=== PATIENT | female | born 1975 | race Caucasian/White ===

== ENCOUNTER 2019-06-12 05:56 | Inpatient (IN) | payer OTHER ==
[~2019-06-12] VITALS: Ht 165.1 cm; Wt 53.5 kg
--- NOTE | 2019-06-12 05:58 | NUR ---
PT BIBRA 878 FROM HOME C/O OVERDOSE, PT IS AAOX0, NOTED RESTLESSNESS, NOT IN RESPIRATORY DISTRESS, HOOKED TO MONITOR, KEPT RESTED AND COMFORTABLE, WILL CONTINUE TO MONITOR.
--- NOTE | 2019-06-12 06:20 | NUR ---
URINE SPECIMEN VIA STRAIGHT CATH AND SENT TO LAB.
--- NOTE | 2019-06-12 06:25 | NUR ---
SEEN AND EXAMINED BY DR. LAUREANO.
[2019-06-12] MEDS ORDERED: HALOPERIDOL LACTATE INJ 5 MG/ML VIAL ONE (06:27)
[2019-06-12] MEDS ORDERED: LORAZEPAM INJ 2 MG/ML VIAL ONE (06:28)
[2019-06-12] MEDS ORDERED: LORAZEPAM INJ 2 MG/ML VIAL IM ONE (06:30)
[2019-06-12] MEDS ORDERED: HALOPERIDOL LACTATE INJ 5 MG/ML VIAL IM ONE (06:30)
--- NOTE | 2019-06-12 06:40 | NUR ---
BRENDA TORRES AT BEDSIDE FOR BLOOD DRAW.
--- NOTE | 2019-06-12 06:40 | NUR ---
ON THE PHONE WITH POISON CONTROL.
--- NOTE | 2019-06-12 06:51 | NUR ---
PER POISON CONTROL. OBTAIN BASIC LABS, TOX, AND CHECK THYROID PANEL WELL. IF CALM DOWN, 50G CHARCOL TO DRINK. IF REFUSING, HOLD OFF. CARDIAC MONITORING AND PALCE ON 12 HOUR OBSERVATION DUE TO ADDERAL XR.
[2019-06-12 06:56] LABS: BASOPHILS # (AUTO) 0.1 /CMM (0.0-0.2); BASOPHILS % (AUTO) 0.6 % (0.0-2.0); EOSINOPHILS % (AUTO) 2.5 % (0.0-6.0); HEMATOCRIT 40 % (33-45); HEMOGLOBIN 13.4 g/dL (11.5-14.8); LYMPHOCYTES # (AUTO) 4.3 /CMM (0.8-4.8); LYMPHOCYTES % (AUTO) 39.2 % (20.0-44.0); MEAN CORPUSCULAR HGB CONC 33 g/dl (31.0-36.0); MEAN CORPUSCULAR VOLUME 93 fL (82-100); MONOCYTES # (AUTO) 0.8 /CMM (0.1-1.30); MONOCYTES % (AUTO) 7.6 % (2.0-12.0); NEUTROPHILS # (AUTO) 5.5 /CMM (1.8-8.9); NEUTROPHILS % (AUTO) 50.1 % (43.0-81.0); PLATELET COUNT (AUTO) 394 /CMM (150-450); RED BLOOD CELL COUNT(AUTO) 4.32 MIL/uL (4.0-5.2)
[2019-06-12 07:06] LABS: APPEARANCE,URINE CLEAR (CLEAR); BILIRUBIN,URINE NEGATIVE (NEGATIVE); BLOOD, URINE NEGATIVE Ery/uL (NEGATIVE); COLOR,URINE YELLOW (YELLOW); KETONES,URINE TRACE (NEGATIVE); LEUKOCYTE ESTERASE ,URINE NEGATIVE (NEGATIVE); NITRITE, URINE NEGATIVE (NEGATIVE); PH,URINE 6.5 (5.0-8.0); PROTEIN,URINE NEGATIVE (NEGATIVE); UGLUCOSE NEGATIVE (NEGATIVE); UROBILINOGEN,URINE 0.2 EU/dL (0.2)
[2019-06-12 07:11] LABS: ACETAMINOPHEN 27 ug/ml (10-30); ALANINE AMINOTRANSFERASE 25 U/L (12-78); ALBUMIN 4.3 g/dL (3.4-5.0); ALCOHOL, BLOOD < 3 mg/dL (0-0); ALKALINE PHOSPHATASE 73 U/L (46-116); ASPARTATE AMINOTRANSFERASE 20 U/L (15-37); BILIRUBIN,DIRECT 0.1 mg/dL (0.0-0.2); BILIRUBIN,TOTAL 0.3 mg/dL (0.2-1.0); CALCIUM, SERUM 8.8 mg/dL (8.5-10.1); CARBON DIOXIDE 22 mmol/L (21-32); CHLORIDE 100 mmol/L (98-107); GLUCOSE 153 mg/dL (74-106); POTASSIUM 3.3 mmol/L (3.5-5.1); SALICYLATE 4.3 mg/dL (2.8-20.0); SODIUM SERUM 137 mmol/L (136-145); TOTAL PROTEIN, SERUM 7.4 g/dL (6.4-8.2); UREA NITROGEN, BLOOD 16 mg/dL (7-18)
[2019-06-12 07:19] LABS: BACTERIA,URINE Rare /HPF (None Seen); RBC,URINE 0-2 /HPF (0-2); WBC,URINE 0-2 /HPF (0-3)
[2019-06-12 07:20] LABS: SQUAMOUS EPITHELIAL CELL,UR Few /HPF (None Seen)
[2019-06-12] MEDS ORDERED: IV NS 0.9% 1,000 ML BAG IV ONE (07:30)
--- NOTE | 2019-06-12 08:26 | NUR ---
CALLED SATNAM [facility].
--- NOTE | 2019-06-12 08:27 | NUR ---
PT REMAINS AGITATED UNABLE TO CONDUCT EKG.
[2019-06-12] MEDS ORDERED: diphenhydrAMINE HCL 50 MG/ML VIAL IM ONE (08:30)
[2019-06-12] MEDS ORDERED: diphenhydrAMINE HCL 50 MG/ML VIAL ONE (08:34)
--- NOTE | 2019-06-12 08:55 | NUR ---
GOT BED 307-1
[2019-06-12 09:00] VITALS: BP 92/63
[2019-06-12] MEDS ORDERED: MAGNESIUM HYDROXIDE 30 ML UDC PO PRN (09:00)
[2019-06-12] MEDS ORDERED: Z GUARD REMEDY 2 OZ OINT TP PRN (09:00)
[2019-06-12] MEDS ORDERED: ZOLPIDEM TARTRATE 5 MG TABLET PO PRN (09:00)
[2019-06-12] MEDS ORDERED: ACETAMINOPHEN 325 MG TABLET PO PRN (09:00)
[2019-06-12] MEDS ORDERED: ONDANSETRON HCL/PF 4 MG/2 ML VIAL IVP PRN (09:00)
--- NOTE | 2019-06-12 09:12 | NUR ---
PT SLEEPING RESP EVWEN UNLABORED REPORT CALLED TO [facility] FOR TRANSFER
[2019-06-12 09:40] VITALS: BP 92/63
[2019-06-12] MEDS: IV NS 0.9% 1,000 ML IV PRN ×2 (10:02→19:15)
--- NOTE | 2019-06-12 10:15 | NUR ---
MOUNTAIN OR GLACIER GUIDEJINGLE WRITER NOTES RECEIVED PT VIA [facility] FROM ER DEPT AT 0925. PT ASLEEP, SLIGHTLY HARD TO WAKE; BUT PT ABLE TO RESPOND TO SIMPLE QUESTIONS. PER ER NURSE PT JUST HAD IV HALOPERIDOL 5MG, ATIVAN 2MG AND BENADRYL 25MG. PT TOLERATING RA WITH NO ACUTE RESPIRATORY DISTRESS NOTED. PT DENIES ANY PAIN OR DISCOMFORT AT THE TIME OF ADMISSION. PT PROVIDED 1:1 SITTER AT BEDSIDE FOR SAFETY PURPOSES. SKIN ASSESSMENT DONE, MULTIPLE INCISION SCARS NOTED AND FILED IN THE CHART, OTHERWISE, INTACT. IVF NS AT 150ML/HR STARTED TO RAC G20, INTACT AND FLUID INFUSING WELL. HOOKED TO TELEMONITORING WITH SR [id number]. ADMISSION HISTORY UNABLE TO PROVIDE BY PT DUE TO MENTAL STATUS AT THIS TIME. PT KEPT COMFORTABLE. CALL LIGHT KEPT WITHIN REACH. WILL CONTINUE PLAN OF CARE.
[2019-06-12] MEDS: POTASSIUM CL. PREMIX PERIPHER. 50 ML IV SCH ×2 (10:29→11:39)
[2019-06-12 11:05] LABS: THYROID STIMULATING HORMONE 0.034 uIU/mL (0.358-3.74)
[2019-06-12 12:00] VITALS: BP 95/59
--- NOTE | 2019-06-12 13:45 | NUR ---
RN NOTES PT ABLE TO GO TO TOILET TO PEE WITH SITTER'S ASSIST.
[2019-06-12 13:59] VITALS: BP 95/59
[2019-06-12 16:00] VITALS: BP 116/79
--- NOTE | 2019-06-12 19:00 | NUR ---
BROTH MIXER CLOSING NOTES PT REMAINS IN BED, CALM, INTERMITTENTLY DOZING OFF, A/O X1-2. PT TOLERATING RA, WITH NO ACUTE RESPIRATORY DISTRESS NOTED. PT DENIES ANY PAIN OR DISCOMFORT AT THIS TIME. 1:1 SITTER AT BEDSIDE FOR SAFETY PURPOSES. IVF NS AT 150ML/HR STARTED TO RAC G20, INTACT AND FLUID INFUSING WELL. PT TELEMONITORING WITH SR [id number]. PT KEPT COMFORTABLE. ALL NEEDS AND CARE ATTENDED. CALL LIGHT KEPT WITHIN REACH. WILL ENDORSE TO INCOMING NIGHT NURSE FOR ALIZA.
--- NOTE | 2019-06-12 19:05 | NUR ---
RESPIRATORY THERAPY TECHNICIAN NOTES RECEIVED PT IN BED AWAKE AND RESTING. PT A/O X3 AND ABLE TO MAKE NEEDS KNOWN. PT NOTED WITH SITTER AT BEDSIDE. RESPIRATIONS EVEN AND UNLABORED WITH NO S/S OF ACUTE DISTRESS OR SOB NOTED. NO COMPLAINTS OF PAIN AT THIS TIME. PT NOTED WITH RAC #20G PATENT AND INTACT INFUSING NS @150CC/HR. SAFETY MEASURES IN PLACE WITH BED IN LOWEST LOCKED POSITION WITH SIDE RAILS UP X2. CALL LIGHT WITHIN REACH. WILL CONTINUE TO MONITOR.
[2019-06-12 20:00] VITALS: BP 96/64
[2019-06-13] VITALS: BP 104/62
[2019-06-13] MEDS: IV NS 0.9% 1,000 ML IV PRN (02:20)
[2019-06-13 04:00] VITALS: BP 118/63
[2019-06-13] MEDS ORDERED: MORPHINE SULFATE INJ 2 MG/ML DISP.SYRIN IV ONE (05:00)
[2019-06-13 06:03] LABS: BASOPHILS % (AUTO) 0.4 % (0.0-2.0); EOSINOPHILS % (AUTO) 1.2 % (0.0-6.0); HEMATOCRIT 39 % (33-45); HEMOGLOBIN 12.9 g/dL (11.5-14.8); LYMPHOCYTES # (AUTO) 2.3 /CMM (0.8-4.8); LYMPHOCYTES % (AUTO) 30.2 % (20.0-44.0); MEAN CORPUSCULAR HGB CONC 33 g/dl (31.0-36.0); MEAN CORPUSCULAR VOLUME 94 fL (82-100); MONOCYTES # (AUTO) 0.4 /CMM (0.1-1.30); MONOCYTES % (AUTO) 5.6 % (2.0-12.0); NEUTROPHILS # (AUTO) 4.8 /CMM (1.8-8.9); NEUTROPHILS % (AUTO) 62.6 % (43.0-81.0); PLATELET COUNT (AUTO) 302 /CMM (150-450); RED BLOOD CELL COUNT(AUTO) 4.13 MIL/uL (4.0-5.2); WHITE BLOOD COUNT (AUTO) 7.7 K/uL (4.3-11.0)
[2019-06-13 06:29] LABS: CALCIUM, SERUM 8.7 mg/dL (8.5-10.1); CREATININE 0.6 mg/dL (0.6-1.3); MAGNESIUM 1.7 mg/dL (1.8-2.4); PHOSPHORUS 2.8 mg/dL (2.5-4.9); POTASSIUM 3.9 mmol/L (3.5-5.1)
--- NOTE | 2019-06-13 07:02 | NUR ---
ORDER SCHEDULE CLERK NOTES PT IN BED AWAKE AND RESTING. PT A/O X3 AND ABLE TO MAKE NEEDS KNOWN. PT NOTED WITH SITTER AT BEDSIDE. RESPIRATIONS EVEN AND UNLABORED WITH NO S/S OF ACUTE DISTRESS OR SOB NOTED THROUGHOUT SHIFT. NO COMPLAINTS OF PAIN AT THIS TIME. PT NOTED WITH RAC #20G PATENT AND INTACT INFUSING NS @150CC/HR. SAFETY MEASURES IN PLACE WITH BED IN LOWEST LOCKED POSITION WITH SIDE RAILS UP X2. CALL LIGHT WITHIN REACH. WILL ENDORSE TO ONCOMING NURSE FOR ALIZA.
--- NOTE | 2019-06-13 07:25 | NUR ---
WELFARE VISITOR OPENING NOTES RECEIVED PT IN BED, AWAKE, A/O X4. PT TOLERATING RA, WITH NO ACUTE RESPIRATORY DISTRESS NOTED. PT STATED WAS IN PAIN AND JUST HAD MORPHINE IV AND CONCERNED ABOUT PT'S THE REST OF HER MEDS TO BE CONTINUED. ALSO, PT CONCERNED ABOUT GOING HOME TODAY. 1:1 SITTER AT BEDSIDE FOR SAFETY PURPOSES. IVF NS AT 150ML/HR TO RAC G20, INTACT AND FLUID INFUSING WELL. PT TELEMONITORING WITH SR [id number]. PT KEPT COMFORTABLE. ALL NEEDS AND CARE ATTENDED. CALL LIGHT KEPT WITHIN REACH. WILL CONTINUE PLAN OF CARE.
[2019-06-13 08:00] VITALS: BP 103/58
[2019-06-13] MEDS: HYDROCODONE/APAP 5/325MG 1 EACH TABLET PO PRN ×2 (08:22→12:30)
[2019-06-13] MEDS ORDERED: PHENOL/SODIUM PHENOLATE 1 LOZ LOZENGE PO ONE (09:30)
[2019-06-13] MEDS ORDERED: oxyCODONE/APAP (5/325 MG) 1 UDTAB TABLET PO PRN (09:30)
[2019-06-13] MEDS ORDERED: MENTHOL/CETYLPYRD (CEPACOL) 1 LOZ LOZENGE PO ONE (09:30)
[2019-06-13] MEDS: Magnesium 1GM/D5W 100ML PREMIX 100 ML IV SCH ×2 (10:22→11:23)
--- NOTE | 2019-06-13 11:03 | NUR ---
MS RN NOTES RN GAUDENCIOD/DR MILTON TO FOLLOW UP WITH PSYCH CONSULT. PER PT'S PREFERENCE WANTED TO GO HOME TODAY. AND HOSPITALIST/CC AWARE OF IT.
--- NOTE | 2019-06-13 13:38 | NUR ---
MS DISCHARGE NOTES PT TO GO HOME, AWAKE, A/O X4. PT TOLERATING RA, WITH NO ACUTE RESPIRATORY DISTRESS NOTED. PT DENIES ANY PAIN OR DISCOMFORT AT THE TIME OF DISCHARGE. RAC G20, REMOVED AND APPLIED DRESSING. PT REVIEWED AND SIGNED DISCHARGE INSTRUCTIONS AND INVENTORY LIST. ALL BELONGINGS WITH THE PT. ALL NEEDS AND CARE PROVIDED AND ATTENDED. HOME MEDS GIVEN BACK TO THE PT. NO PICTURES TAKEN AND FILED ON THE CHART, PT REFUSED AND EXCITED TO GO HOME; OTHERWISE, SKIN IS INTACT. VS STABLE AND RECORDED. PT ESCORTED BY GINGER FARMER TO THE LOBBY AND LEFT THE UNIT AT 1335. HOSPITALIST/DNP/CC AND CHARGE NURSE OMEGA AWARE OF DISCHARGE.
== END 2019-06-13 13:40 | disposition home or self-care (01) | DRG 816 ==
LOC: EDBD 06:06 → ER 06:06 → TELE 08:57 → MED 06-13 13:12
PROVIDERS: ADMIT Nurse Practitioner Acute Care; ATTEND Nurse Practitioner Acute Care
DX: T62.0X1A Toxic effect of ingested mushrooms, accidental (unintentional), initial encounter (principal); G92 Toxic encephalopathy; T42.8X1A Poisoning by antiparkinsonism drugs and other central muscle-tone depressants, accidental (unintentional), initial encounter; E03.9 Hypothyroidism, unspecified; E87.6 Hypokalemia; F41.1 Generalized anxiety disorder; R73.9 Hyperglycemia, unspecified; R40.2423 Glasgow coma scale score 9-12, at hospital admission; F90.9 Attention-deficit hyperactivity disorder, unspecified type; G89.29 Other chronic pain; R78.89 Finding of other specified substances, not normally found in blood; Y92.009 Unspecified place in unspecified non-institutional (private) residence as the place of occurrence of the external cause; Z79.899 Other long term (current) drug therapy
CPT/HCPCS: 36415; 80048-TC; 80061-TC; 80076-TC; 80305; 81000-TC; 83735-TC; 84100-TC; 84439-TC; 84443-TC; 85025-TC; 87081-TC; G0378; G0480; J1200; J1630; J2060; J2270; J3475; J3480; J7030

== ENCOUNTER 2023-11-15 18:00 | Emergency (ER) | payer MEDICAID, OTHER ==
[~2023-11-15] VITALS: Ht 157.5 cm; Wt 54.4 kg
[2023-11-15 18:37] LABS: BASOPHILS # (AUTO) 0.1 K/uL (0.0-0.2); BASOPHILS % (AUTO) 0.6 % (0.0-2.0); EOSINOPHILS # (AUTO) 0.3 K/uL (0.0-0.7); EOSINOPHILS % (AUTO) 2.9 % (0.0-6.0); HEMATOCRIT 42 % (33-45); HEMOGLOBIN 13.6 g/dL (11.5-14.8); LYMPHOCYTES # (AUTO) 3.6 K/uL (0.8-4.8); LYMPHOCYTES % (AUTO) 32.4 % (20.0-44.0); MEAN CORPUSCULAR HEMOGLOBIN 31 PG (26.0-33.0); MEAN CORPUSCULAR HGB CONC 33 g/dl (31.0-36.0); MEAN CORPUSCULAR VOLUME 94 fL (82-100); MONOCYTES # (AUTO) 0.8 K/uL (0.1-1.30); MONOCYTES % (AUTO) 7.4 % (2.0-12.0); NEUTROPHILS # (AUTO) 6.4 K/uL (1.8-8.9); NEUTROPHILS % (AUTO) 56.7 % (43.0-81.0); PLATELET COUNT (AUTO) 343 K/uL (150-450); RED CELL DISTRIBUTION WIDTH 15.1 % (11.5-15.0); WHITE BLOOD COUNT (AUTO) 11.3 K/uL (4.3-11.0)
[2023-11-15 18:43] LABS: CALCIUM, SERUM 8.6 mg/dL (8.5-10.1); CARBON DIOXIDE 32 mmol/L (21-32); CHLORIDE 104 mmol/L (98-107); CREATININE 0.9 mg/dL (0.6-1.3); GLUCOSE 96 mg/dL (74-106); POTASSIUM 4.1 mmol/L (3.5-5.1); SODIUM SERUM 140 mmol/L (136-145); UREA NITROGEN, BLOOD 13 mg/dL (7-18)
[2023-11-15 18:50] LABS: ACETAMINOPHEN < 10 ug/ml (10-30); ALANINE AMINOTRANSFERASE 16 U/L (12-78); ALBUMIN 3.7 g/dL (3.4-5.0); ALCOHOL, BLOOD < 3 mg/dL (0-10); ALKALINE PHOSPHATASE 70 U/L (46-116); ASPARTATE AMINOTRANSFERASE 11 U/L (15-37); BILIRUBIN,DIRECT 0.1 mg/dL (0.0-0.2); BILIRUBIN,TOTAL 0.2 mg/dL (0.2-1.0); SALICYLATE 5.1 mg/dL (2.8-20.0); TOTAL PROTEIN, SERUM 6.8 g/dL (6.4-8.2)
[2023-11-15 19:49] LABS: APPEARANCE,URINE CLEAR (CLEAR); BILIRUBIN,URINE NEGATIVE (NEGATIVE); BLOOD, URINE NEGATIVE Ery/uL (NEGATIVE); COLOR,URINE YELLOW (YELLOW); KETONES,URINE NEGATIVE (NEGATIVE); LEUKOCYTE ESTERASE ,URINE NEGATIVE (NEGATIVE); NITRITE, URINE NEGATIVE (NEGATIVE); PH,URINE 6.5 (5.0-8.0); PREGNANCY TEST URINE QUAL NEGATIVE (NEGATIVE); PROTEIN,URINE NEGATIVE (NEGATIVE); UGLUCOSE NEGATIVE (NEGATIVE); UROBILINOGEN,URINE 0.2 EU/dL (0.2)
[2023-11-15 20:02] LABS: AMPHETAMINE, URINE POSITIVE (NEGATIVE); BARBITURATE, URINE NEGATIVE (NEGATIVE); BENZODIAZEPINE, URINE NEGATIVE (NEGATIVE); CANNABINOID, URINE POSITIVE (NEGATIVE); COCCAINE, URINE NEGATIVE (NEGATIVE); OPIATE, URINE POSITIVE (NEGATIVE); PHENCYCLIDINE SCREEN,URINE NEGATIVE (NEGATIVE)
[2023-11-15 22:20] VITALS: BP 109/75; TEMP 99.1; O2SAT 100
== END 2023-11-15 22:21 | disposition home or self-care (01) ==
LOC: ER 18:26
DX: G40.909 Epilepsy, unspecified, not intractable, without status epilepticus (principal); R10.2 Pelvic and perineal pain; Z20.822 Contact with and (suspected) exposure to COVID-19; Z88.1 Allergy status to other antibiotic agents
CPT/HCPCS: 36415; 80048-TC; 80076-TC; 84703-TC; 85025-TC; G0480

== ENCOUNTER 2024-02-03 11:04 | Emergency (ER) | payer MEDICAID ==
[~2024-02-03] VITALS: Ht 157.5 cm; Wt 52.2 kg
[2024-02-03] MEDS ORDERED: ONDANSETRON HCL/PF 4 MG/2 ML VIAL ONE ×2 (11:44→13:37)
[2024-02-03] MEDS: IV NS 0.9% 1,000 ML BAG IV ONE ×2 (11:57→15:37)
[2024-02-03] MEDS: ONDANSETRON HCL/PF 4 MG/2 ML VIAL IVP ONE ×2 (11:58→13:52)
[2024-02-03 12:11] LABS: BASOPHILS # (AUTO) 0.1 K/uL (0.0-0.2); BASOPHILS % (AUTO) 0.6 % (0.0-2.0); EOSINOPHILS # (AUTO) 0.1 K/uL (0.0-0.7); EOSINOPHILS % (AUTO) 0.7 % (0.0-6.0); HEMATOCRIT 48 % (33-45); HEMOGLOBIN 16.3 g/dL (11.5-14.8); LYMPHOCYTES # (AUTO) 1.5 K/uL (0.8-4.8); LYMPHOCYTES % (AUTO) 11.7 % (20.0-44.0); MEAN CORPUSCULAR HEMOGLOBIN 32 PG (26.0-33.0); MEAN CORPUSCULAR HGB CONC 34 g/dl (31.0-36.0); MEAN CORPUSCULAR VOLUME 94 fL (82-100); MONOCYTES # (AUTO) 0.3 K/uL (0.1-1.30); MONOCYTES % (AUTO) 2.1 % (2.0-12.0); NEUTROPHILS # (AUTO) 11.1 K/uL (1.8-8.9); NEUTROPHILS % (AUTO) 84.9 % (43.0-81.0); PLATELET COUNT (AUTO) 444 K/uL (150-450); RED BLOOD CELL COUNT(AUTO) 5.12 MIL/uL (4.0-5.2); RED CELL DISTRIBUTION WIDTH 14.3 % (11.5-15.0)
[2024-02-03 12:14] LABS: CALCIUM, SERUM 9.5 mg/dL (8.5-10.1); CREATININE 0.9 mg/dL (0.6-1.3); POTASSIUM 4.4 mmol/L (3.5-5.1)
[2024-02-03] MEDS ORDERED: LORAZEPAM INJ 2 MG/ML VIAL ONE (12:15)
[2024-02-03] MEDS: LORAZEPAM INJ 2 MG/ML VIAL IV ONE (12:20)
[2024-02-03 12:23] LABS: ALBUMIN 4.4 g/dL (3.4-5.0); BILIRUBIN,DIRECT 0.1 mg/dL (0.0-0.2); BILIRUBIN,TOTAL 0.3 mg/dL (0.2-1.0); TOTAL PROTEIN, SERUM 8.2 g/dL (6.4-8.2)
[2024-02-03] MEDS ORDERED: ONDA4TAB11 PO (12:54)
[2024-02-03] MEDS ORDERED: FAMOTIDINE/PF INJ 20 MG/2 ML VIAL IV ONE (13:37)
[2024-02-03] MEDS: FAMOTIDINE/PF INJ 20 MG/2 ML VIAL IV ONE (13:51)
[2024-02-03 18:16] VITALS: BP 125/71; TEMP 97.7; O2SAT 78
== END 2024-02-03 19:00 | disposition home or self-care (01) ==
LOC: ER 11:04
DX: K52.9 Noninfective gastroenteritis and colitis, unspecified (principal); R11.10 Vomiting, unspecified; G40.909 Epilepsy, unspecified, not intractable, without status epilepticus; G89.29 Other chronic pain; E03.9 Hypothyroidism, unspecified; Z79.890 Hormone replacement therapy; Z90.49 Acquired absence of other specified parts of digestive tract; Z88.8 Allergy status to other drugs, medicaments and biological substances
CPT/HCPCS: 99285; 74176; 96374; 96361; 96375; 96376; 85025; 80048; 83690; 80076; 36415; J2060; J3490; J2405 ×2; J7030 ×2